=== PATIENT | male | born 1955 | race Caucasian/White ===

== ENCOUNTER 2019-12-19 17:43 | Inpatient (IN) ==
[2019-12-19] MEDS ORDERED: Haloperidol Lactate 5 MG/ML VIAL IM PRN (17:56)
[2019-12-19] MEDS ORDERED: Acetaminophen 325 MG TABLET PO PRN (17:56)
[2019-12-19] MEDS ORDERED: haloperidoL 5 MG TABLET PO PRN (17:56)
[2019-12-19] MEDS ORDERED: *HR* LORazepam 1 MG TABLET PO PRN (17:56)
[2019-12-19] MEDS ORDERED: *HR* LORazepam 2 MG/ML VIAL IM PRN (17:56)
[2019-12-19] MEDS ORDERED: Mag Hydrox/Al Hydrox/Simeth 30 ML UDC PO PRN (17:56)
[2019-12-19] MEDS ORDERED: Melatonin 3 MG TABLET PO PRN (21:15)
[2019-12-19] MEDS: Apixaban 5 MG TABLET PO SCH (21:46)
[2019-12-20] MEDS: Apixaban 5 MG TABLET PO SCH ×2 (08:52→19:59)
[2019-12-20] MEDS: lisinopriL 20 MG TABLET PO SCH (08:52)
[2019-12-20] MEDS: Multivit/Ca/Min/Fe/FA 1 TAB TABLET PO SCH (08:52)
[2019-12-20] MEDS: DilTIAZem CD (24hr) 240 MG CAP.ER.24H PO SCH (08:52)
[2019-12-20] MEDS: hydrOXYzine pamoate 25 MG CAPSULE PO PRN ×2 (12:37→20:00)
[2019-12-20] MEDS: Melatonin 3 MG TABLET PO SCH (19:59)
[2019-12-20] MEDS: traZODone 50 MG TABLET PO PRN (19:59)
[2019-12-21] MEDS: Apixaban 5 MG TABLET PO SCH ×2 (08:28→20:04)
[2019-12-21] MEDS: DilTIAZem CD (24hr) 240 MG CAP.ER.24H PO SCH (08:28)
[2019-12-21] MEDS: Multivit/Ca/Min/Fe/FA 1 TAB TABLET PO SCH (08:28)
[2019-12-21] MEDS: lisinopriL 20 MG TABLET PO SCH (08:29)
[2019-12-21] MEDS: traZODone 50 MG TABLET PO PRN (20:04)
[2019-12-21] MEDS: Melatonin 3 MG TABLET PO SCH (20:04)
[2019-12-21] MEDS: hydrOXYzine pamoate 25 MG CAPSULE PO PRN (20:04)
[2019-12-22] MEDS: Apixaban 5 MG TABLET PO SCH (08:46)
[2019-12-22] MEDS: DilTIAZem CD (24hr) 240 MG CAP.ER.24H PO SCH (08:46)
[2019-12-22] MEDS: lisinopriL 20 MG TABLET PO SCH (08:47)
[2019-12-22] MEDS: Multivit/Ca/Min/Fe/FA 1 TAB TABLET PO SCH (08:47)
[2019-12-22 09:04] VITALS: BP 124/76
== END 2019-12-22 17:25 | disposition home or self-care (01) | DRG 751 ==
LOC: 1ANU 17:43 → SUATTDRO 17:43
PROVIDERS: ADMIT Psychiatry & Neurology Psychiatry; ATTEND Psychiatry & Neurology Forensic Psychiatry

== ENCOUNTER 2021-07-10 18:02 | Inpatient (IN) ==
[2021-07-10] MEDS ORDERED: Naloxone 0.4 MG/ML INJ IVP PRN (20:59)
[2021-07-10] MEDS ORDERED: Ondansetron 4 MG/2 ML VIAL IVP PRN (20:59)
[2021-07-10] MEDS ORDERED: Acetaminophen 325 MG TABLET PO PRN (20:59)
[2021-07-10] MEDS ORDERED: Haloperidol Lactate 5 MG/ML VIAL IVP ONE (21:07)
[2021-07-10] MEDS ORDERED: *HR* LORazepam 2 MG/ML VIAL IVP PRN (22:08)
[2021-07-10] MEDS ORDERED: Perflutren Lipid Microsphere 1.3 ML in 0.9 % Sodium Chloride 8.7 ML IVP PRN (22:19)
[2021-07-10 22:29] LABS: Bacteria,Urine Few per hpf (None-Few); Bilirubin,Urine Negative (Negative); Blood,Urine Moderate (Negative); Clarity,Urine Clear (Clear); Color,Urine Light-Yellow (Yellow); Glucose,Urine (UA) Normal (Normal); Ketones,Urine Negative (Negative); Leukocyte Esterase,Urine Negative (Negative); Mucus,Urine Few per lpf (None-Few); Nitrite,Urine Negative (Negative); Protein,Urine Negative (Neg-Trace); Specific Gravity,Urine 1.006 (1.010-1.025); Urobilinogen,Urine Normal (Normal); WBC,Urine 0-3 per hpf (0-3)
[2021-07-10 22:37] LABS: Amphetamine Screen,Urine Negative ng/mL (Cutoff=1000); Barbiturate Screen,Urine Negative ng/mL (Cutoff=200); Benzodiazepines Screen,Urine Negative ng/mL (Cutoff=200); Cannabinoid Screen,Urine Negative ng/mL (Cutoff = 50); Cocaine Screen,Urine Negative ng/mL (Cutoff= 300); Opiate Screen,Urine Negative ng/mL (Cutoff=300); Phencyclidine Screen,Urine Negative ng/mL (Cutoff=25)
[2021-07-10 22:40] LABS: Chloride,Urine 20 mEq/L; Potassium,Urine 16.9 mEq/L; Sodium, Urine < 10.0 mEq/L
[2021-07-11] MEDS: Folic Acid 1 MG TABLET PO SCH ×2 (00:03→08:51)
[2021-07-11] MEDS: Thiamine (B-1) 100 MG TABLET PO SCH ×2 (00:04→08:50)
[2021-07-11 00:31] LABS: Basophils % 0.8 %; Eosinophils # 0.1 K/mcL (0.0-0.6); Eosinophils % 1.8 %; Hematocrit 48.6 % (37.5-50.1); Hemoglobin 16.3 g/dL (12.9-16.9); Immature Granulocytes % 0.5 % (0-4); Lymphocytes # 0.6 K/mcL (0.6-4.6); Lymphocytes % 14.6 %; Mean Corpuscular HGB Conc 33.5 g/dL (31.6-35.5); Mean Corpuscular Hemoglobin 32.3 pg (28.0-33.3); Mean Corpuscular Volume 96.2 fL (83.0-100.0); Monocytes # 0.5 K/mcL (0.0-1.3); Monocytes % 14.1 %; Neutrophils # 2.6 K/mcL (1.6-8.9); Platelet Count 156 K/mcL (140-400); Red Blood Count 5.05 M/mcL (4.19-5.50); Red Cell Distribution Width 12.7 % (11.5-14.5); Segmented Neutrophils % 68.2 %; White Blood Count 3.8 K/mcL (4.3-11.1)
[2021-07-11 00:39] LABS: Heparin anti-factor XA UFH 0.58 IU/mL (0.30-0.70); INR 1.1; Prothrombin Time 11.8 Seconds (9.4-12.1)
[2021-07-11] MEDS: *HR* LORazepam 2 MG/ML VIAL IVP PRN ×2 (00:44→14:45)
[2021-07-11 00:52] LABS: BUN/Creatinine Ratio 11 (6-26); Blood Urea Nitrogen 10 mg/dL (8-23); Carbon Dioxide 18 mEq/L (23-29); Chloride 104 mEq/L (98-107); Ethanol 171 mg/dL (Less than 10); Glucose 86 mg/dL (70-105); Magnesium 1.9 mg/dL (1.6-2.6); Osmolality,Calculated 284 (280-300); Phosphorous 3.4 mg/dL (2.7-4.5); Potassium 4.6 mEq/L (3.5-5.1); Sodium 138 mEq/L (136-145); eGFR For African Americans > 60 (> 60); eGFR For Non-African Americans > 60 (> 60)
[2021-07-11 00:54] LABS: Troponin I 0.12 ng/mL (< 0.04)
[2021-07-11] MEDS ORDERED: Calcium Gluconate 1gm/50mL 1 GM/50 ML BAG IVPB ONE (01:04)
[2021-07-11 05:46] LABS: Troponin I 0.13 ng/mL (< 0.04)
[2021-07-11 06:12] LABS: Albumin 3.6 g/dL (3.5-5.7); Albumin/Globulin Ratio 1.3 (1.1-2.2); Bilirubin,Direct 0.2 mg/dL (0.0-0.2); Bilirubin,Indirect 0.7 mg/dL (0.0-1.0); Bilirubin,Total 0.9 mg/dL (0.3-1.0); Chol/HDL Ratio 2.1 (0-4.9); Globulin 2.8 g/dL (2.4-3.5); Thyroid Stimulating Hormone 6.349 mcIU/mL (0.340-5.600); Total Protein 6.4 g/dL (6.4-8.9)
[2021-07-11] MEDS ORDERED: *HR* Heparin 5,000 UNIT/ML VIAL IVP ONE (06:31)
[2021-07-11] MEDS ORDERED: *HR* Heparin 5,000 UNIT/ML VIAL IVP PRN (06:31)
[2021-07-11] MEDS: Nicotine 21 MG PATCH.TD24 TD SCH (08:05)
[2021-07-11] MEDS: Heparin 25,000UNIT/250ML 1/2NS 25,000 UNIT/250 ML IV.SOLN IVC SCH (08:05)
[2021-07-11] MEDS: *HR* Metoprolol 5 MG/5 ML VIAL IVP PRN (08:05)
[2021-07-11] MEDS: Aspirin Enteric Coated 81 MG Tablet PO SCH (11:22)
[2021-07-11] MEDS ORDERED: *HR* Digoxin 0.5 MG/2 ML AMPUL IVP ONE ×2 (18:47→18:53)
[2021-07-11] MEDS: *HR* Heparin 5,000 UNIT/ML VIAL IVP PRN (22:35)
[2021-07-12 05:03] LABS: Basophils % 0.7 %; Eosinophils # 0.1 K/mcL (0.0-0.6); Eosinophils % 2.9 %; Hematocrit 44.1 % (37.5-50.1); Hemoglobin 14.9 g/dL (12.9-16.9); Immature Granulocytes % 0.5 % (0-4); Lymphocytes # 0.6 K/mcL (0.6-4.6); Lymphocytes % 13.7 %; Mean Corpuscular HGB Conc 33.8 g/dL (31.6-35.5); Mean Corpuscular Volume 94.8 fL (83.0-100.0); Mean Platelet Volume 9.2 fL (9.4-12.4); Monocytes # 0.6 K/mcL (0.0-1.3); Monocytes % 13.1 %; Neutrophils # 3.1 K/mcL (1.6-8.9); Platelet Count 180 K/mcL (140-400); Red Blood Count 4.65 M/mcL (4.19-5.50); Red Cell Distribution Width 12.6 % (11.5-14.5); Segmented Neutrophils % 69.1 %; White Blood Count 4.4 K/mcL (4.3-11.1)
[2021-07-12 05:08] LABS: BUN/Creatinine Ratio 13 (6-26); Blood Urea Nitrogen 13 mg/dL (8-23); Calcium 8.4 mg/dL (8.6-10.3); Carbon Dioxide 24 mEq/L (23-29); Chloride 102 mEq/L (98-107); Glucose 103 mg/dL (70-105); Osmolality,Calculated 276 (280-300); Potassium 4.2 mEq/L (3.5-5.1); Sodium 133 mEq/L (136-145); eGFR For African Americans > 60 (> 60); eGFR For Non-African Americans > 60 (> 60)
[2021-07-12] MEDS: Heparin 25,000UNIT/250ML 1/2NS 25,000 UNIT/250 ML IV.SOLN IVC SCH ×2 (05:13→21:26)
[2021-07-12] MEDS: *HR* Heparin 5,000 UNIT/ML VIAL IVP PRN (05:18)
[2021-07-12] MEDS ORDERED: Benzonatate 100 MG CAPSULE PO PRN (05:27)
[2021-07-12] MEDS ORDERED: *HR* Digoxin 0.5 MG/2 ML AMPUL IVP ONE (05:30)
[2021-07-12] MEDS: Folic Acid 1 MG TABLET PO SCH (07:41)
[2021-07-12] MEDS: Aspirin Enteric Coated 81 MG Tablet PO SCH (07:41)
[2021-07-12] MEDS: Nicotine 21 MG PATCH.TD24 TD SCH (07:41)
[2021-07-12] MEDS: Thiamine (B-1) 100 MG TABLET PO SCH (07:41)
[2021-07-12 08:45] LABS: Magnesium 1.7 mg/dL (1.6-2.6)
[2021-07-12] MEDS ORDERED: Furosemide 20 MG/2 ML VIAL IVP ONE (14:50)
[2021-07-12] MEDS: Metoprolol XL (24 HR) Succ 50 MG TAB.ER.24H PO SCH (20:58)
[2021-07-13] MEDS: Thiamine (B-1) 100 MG TABLET PO SCH (11:05)
[2021-07-13] MEDS: Metoprolol XL (24 HR) Succ 50 MG TAB.ER.24H PO SCH ×2 (11:05→19:53)
[2021-07-13] MEDS: Folic Acid 1 MG TABLET PO SCH (11:06)
[2021-07-13] MEDS: Nicotine 21 MG PATCH.TD24 TD SCH (11:06)
[2021-07-13] MEDS: Apixaban 5 MG TABLET PO SCH ×2 (11:06→19:53)
[2021-07-13] MEDS: predniSONE 20 MG TABLET PO SCH (11:06)
[2021-07-13] MEDS: Aspirin Enteric Coated 81 MG Tablet PO SCH (11:06)
[2021-07-14 05:19] LABS: BUN/Creatinine Ratio 16 (6-26); Blood Urea Nitrogen 17 mg/dL (8-23); Calcium 9.4 mg/dL (8.6-10.3); Carbon Dioxide 27 mEq/L (23-29); Chloride 100 mEq/L (98-107); Glucose 112 mg/dL (70-105); Magnesium 1.5 mg/dL (1.6-2.6); Osmolality,Calculated 282 (280-300); Phosphorous 3.2 mg/dL (2.7-4.5); Potassium 4.1 mEq/L (3.5-5.1); Sodium 135 mEq/L (136-145); eGFR For African Americans > 60 (> 60); eGFR For Non-African Americans > 60 (> 60)
[2021-07-14] MEDS: Nicotine 21 MG PATCH.TD24 TD SCH (09:55)
[2021-07-14] MEDS: predniSONE 20 MG TABLET PO SCH (09:55)
[2021-07-14] MEDS: Aspirin Enteric Coated 81 MG Tablet PO SCH (09:56)
[2021-07-14] MEDS: Apixaban 5 MG TABLET PO SCH (09:56)
[2021-07-14] MEDS: Metoprolol XL (24 HR) Succ 50 MG TAB.ER.24H PO SCH (09:56)
[2021-07-14] MEDS: Folic Acid 1 MG TABLET PO SCH (09:56)
[2021-07-14] MEDS: Thiamine (B-1) 100 MG TABLET PO SCH (09:56)
[2021-07-14 11:18] VITALS: O2SAT 97
[2021-07-14] MEDS: *HR* Metoprolol 5 MG/5 ML VIAL IVP PRN (13:44)
[2021-07-14 15:50] VITALS: BP 136/105; PULSE 107; TEMP 97.6
== END 2021-07-14 18:43 | disposition home health service (06) | DRG 42 ==
LOC: 3NENU → SUATTDRO 20:43
PROVIDERS: ADMIT Internal Medicine; ATTEND Internal Medicine